=== PATIENT | female | born 1980 | race Caucasian/White ===

== ENCOUNTER 2023-07-20 10:36 | Outpatient (OUT) | payer OTHER, SELFPAY ==
--- NOTE | 2023-07-20 10:49 | XR_ITS ---
[address] [address] Patient Name: MORENITA PORTER MRN: [id number] date: 1980 Sex: F Assigned Patient Location: [facility] Current Patient Location: [facility] Accession/Order Number: [id number] Exam Date: 07/20/2023 11:15 Report Date: 07/20/2023 12:12 At the request of: KOLTON MCCAULEY Procedure: XR knee RT 3V EXAM: XR knee RT 3V HISTORY: Knee Pain M25.569 COMPARISON: None. TECHNIQUE: 4 views FINDINGS: No acute fracture or dislocation. Mild degenerative changes of the knee joint. Mild soft tissue swelling. XR/XR knee RT 3V IMPRESSION: Degenerative changes as above. Electronically authenticated by: NAOMI VALERO Date: 07/20/2023 12:12
== END 2023-07-20 10:37 | disposition home or self-care (01) ==
LOC: RAD 10:40
PROVIDERS: PCP Family Medicine; Visit Provider Family Medicine
DX: M25.561 Pain in right knee (principal); R03.0 Elevated blood-pressure reading, without diagnosis of hypertension; M25.461 Effusion, right knee
CPT/HCPCS: 73562